=== PATIENT | male | born 1960 | race Caucasian/White ===

== ENCOUNTER → 2023-12-20 13:20 | Outpatient (REF) | payer BC, SELFPAY | LOC: HWRAD 13:20 | PROVIDERS: ATTENDING PHYSICIAN Internal Medicine Cardiovascular Disease; FAMILY PHYSICIAN Physician Assistant | DX: I48.0 Paroxysmal atrial fibrillation (principal); I71.21 Aneurysm of the ascending aorta, without rupture | CPT/HCPCS: 71250 ==

== ENCOUNTER → 2025-09-05 14:03 | Outpatient (REF) | payer BC, SELFPAY | LOC: HWRAD 14:03 | PROVIDERS: ATTENDING PHYSICIAN Physician Assistant Medical; FAMILY PHYSICIAN Physician Assistant | DX: I71.21 Aneurysm of the ascending aorta, without rupture (principal) | CPT/HCPCS: 71250 ==